=== PATIENT | female | born 1940 | race Caucasian/White ===

== ENCOUNTER 2017-01-04 06:47 | Day surgery (SDC) | payer MEDICARE ==
[2017-01-04] VITALS (16 sets, daily range): BP systolic 108–144; BP diastolic 50–71; PULSE 56–73; RESP 13–18; O2SAT 93–100
[~2017-01-04] VITALS: Ht 163.8 cm; Wt 63.6 kg
[~2017-01-04 06:47] MED LIST: ASPI-973 PO; ATOR20TA65 PO; BIMA2.5D5 BOTH_EYES; BRIM5DRO10 BOTH_EYES; CHOL200047 PO; CYAN1TAB42 PO; DORZ10DR20 BOTH_EYES; GABA-500 PO; LEVO25TA5 PO; LISI-571 PO; METO25TA6 PO; PRENATAL PO; PROP225C6 PO; RIVA20TA PO; VENL75CA PO
[2017-01-04] MEDS ORDERED: fentaNYL-PF 50 mCg/mL 2 mL Inj ONE (06:48)
[2017-01-04] MEDS ORDERED: Propofol 10,000 mCg/mL 20 mL Inj ONE (06:48)
[2017-01-04] MEDS ORDERED: Dexamethasone 4 mg/mL Inj ONE (06:48)
[2017-01-04] MEDS ORDERED: EPHEDrine/NS 5 mg/mL 5 mL Syringe ONE (06:48)
[2017-01-04] MEDS ORDERED: Rocuronium 10 mg/mL 5 mL Inj ONE (06:48)
[2017-01-04] MEDS ORDERED: Ondansetron 2 mg/mL 2 mL Inj ONE (06:48)
[2017-01-04] MEDS ORDERED: Protamine Sulfate 10 mg/mL 5 mL Inj ONE ×2 (06:48→14:51)
[2017-01-04] MEDS ORDERED: SODIUM CHLORIDE ONE (10:16)
[2017-01-04] MEDS ORDERED: Heparin 25,000 Unit/500 mL 0.45% NS Premix IV ONE (10:16)
[2017-01-04] MEDS ORDERED: Heparin 1,000 Units/500 mL NS Premix IV ONE ×2 (10:50→13:08)
[2017-01-04] MEDS ORDERED: CYCL1DRO BOTH_EYES (10:59)
--- NOTE | 2017-01-04 11:13 | PCM.HPANE ---
Patient Data Date of Service: Jan 04, 2017 ([id number]) Surgeon Admitting Provider: Attending Provider:Tay Husain MD Primary Care Physician:An Other Provider:Adina Baeza Anesthesia Reason for Visit A-FIB Ht/WT & BMI Body Mass Index Allergies Coded Allergies: Penicillins (Verified Allergy, Mild, rash, 01/04/17) Uncoded Allergies: No Known Allergies (Allergy, Unknown, 12/23/03) Past Anesthesia History Anesthesia History: Denies:: Abnormal Airway, Anesthesia Reactions, Difficult Intubation, Fam Anesthesia Reaction, Fam Malignant Hypertherm, Malignant Hyperthermia Diabetes History Hx Diabetes?: No MRSA MRSA: No Medications Blood Thinner: Aspirin (last dose 911 pm), Xarelto (last dose 01/02 pm) Hypertension Medication: Yes Home Meds Incl Beta Nicole: Yes Previous Beta Nicole Dose >24: Previous Dose <24 Hours Reported Medications Cyclosporine (Restasis)1 Each Droperette1 Each BOTH_EYES BID 01/04/17 Cholecalciferol (Vitamin D3) (Vitamin D3)2,000 Unit Capsule2,000 Unit PO DAILY 11/12/15 [] No Conflict Check27 Mg PO DAILY 11/11/15 Aspirin 81 Mg Nbyorf99 Mg PO DAILY Ref 0 11/11/15 Rivaroxaban (Xarelto)20 Mg Xvcuus83 Mg PO DAILY 06/23/14 Cyanocobalamin/Folic Acid (Vitamin Q54-Dtene Acid Tablet)1 Each Tablet1 Each PO DAILY 06/23/14 Propafenone ER 225 Mg Cap.er.24r942 Mg PO BID 06/23/14 Metoprolol Tartrate 25 Mg Hhwvov75 Mg PO BID 30 Days Ref 0 06/23/14 Bimatoprost (Lumigan)45 Drop/2.5 Ml Qcyfhpl65 Drop BOTH_EYES HS #1 BOTTLE 06/23/14 Lisinopril 5 Mg Tablet5 Mg PO DAILY #30 TABLET Ref 0 06/23/14 Levothyroxine 25 Mcg Ovygzt70 Mcg PO DAILY 30 Days Ref 0 06/23/14 Dorzolamide HCl/Timolol Maleat (Dorzolamide-Timolol Eye Drops)10 Ml Drops1 Gtt BOTH_EYES BID #1 BOTTLE 06/23/14 Atorvastatin Calcium 20 Mg Bdvkic77 Mg PO DAILY #30 TABLET Ref 0 06/23/14 Discontinued Reported Medications Gabapentin 100 Mg Rjctvck878 Mg PO DAILY 30 Days Ref 0 06/23/14 Venlafaxine ER (Effexor XR)75 Mg Cap.er.24h75 Mg PO DAILY #30 CAPSULE Ref 0 06/23/14 Brimonidine Tartrate (Alphagan P)5 Ml Drops1 Gtt BOTH_EYES BID 06/23/14 History History of ENT Problems?: Yes HEENT History: Positive for:: Cataracts (surgery to both eyes) Hearing Problem Denies:: Abnormal Airway Difficult Intubation Dysphagia Denture Type: None Teeth Condition: Within Normal Limits Hx of Heart Problems?: Yes Cardiovascular History: Positive for:: Atrial Fibrillation Cardiac Surgery (heart cath 2010 with mild left main dz) Heart Murmur (Mitral & Tricuspid Regurg; ) Hypertension Irregular Heartbeat (atrial fibrillation) Denies:: AICD Chest Pain Pacemaker Valvular Heart Disease Hx of Respiratory Problem?: No Respiratory History: Denies:: Asthma Hx Neurologic Problems?: No Neurological History: Denies:: CVA Dementia Seizures Hx of GI Problems?: Yes Hx of Problems?: No Hx Musculoskeletal Problems?: No Musculoskeletal History: Denies:: Back Injury Joint Replacement Hx of Psycho/Social Problems?: No Psycho Social History: Positive for:: Anxiety Hx Depression (daughter with metastatic breast cancer x 12 yrs for illness) Hx Surgeries?: Yes (Part. gastrectomy; part. liver resection; spleenectomy; nephrectomy) Hx Any Other Health Problems?: Yes Other History: Positive for:: Cancer (Lymphoma 1987) Hospitalization (Lymphoma) History Blood Transfusions: Positive for:: Blood Transfuse Reaction (Hep. A) Blood Transfusions Hx Diabetes: No Hx Alcohol Use: Yes (Rare)Hx Substance Use: No Smoking Status: Never Smoker Have You Smoked inLast 12 mo: No Stop/Bang S-Snoring: Do You Snore Loudly: No PHYLICIA Risk Assessment: Low Risk, <3 Yes Risk Assessment Category Category 1A: Patient has history of documented sleep apnea, and HAS NOT received any narcotic, sedative or anesthesia administration during this stay. Category 1B: Patient has history of documented sleep apnea, and HAS received any narcotic , sedative or anesthesia administration during this stay Category 2: Patient has SUSPECTED Obstructive Sleep Apnea, and HAS received any narcotic , sedative or anesthesia administration during this stay. Category 3: Patient has SUSPECTED Obstructive Sleep Apnea and HAS NOT received narcotic, sedative or anesthesia administration during this stay. Category 4: Outpatient in Procedural Areas with known sleep apnea or who screen positive for High Risk via the STOP/BANG questionnaire. Exam Exam General Appearance: Alert, Oriented X3 HEENT/AIRWAY: MP 1 Lungs: Clear to Auscultation Heart: Exam Unremarkable Plan Impression Patient chart reviewed, patient interviewed and anesthestic plan with risks, benefits, and alternatives discussed, and informed consent obtained. NPO per Anesth. Guidelines: Yes ASA Physical Status: ASA2 Mod Systemic Disease Anesthetic Plan: GA Bene/Risks/Altern/Consents: Yes HP Complete Prior to Induction: Yes Lyndon Chowdhury MD Jan 04, 2017 11:13
[2017-01-04 11:25] LABS: BASOPHILS % (AUTO) 1.7 % (0-3); EOSINOPHILS % (AUTO) 2.9 % (0-5); MONOCYTES % (AUTO) 12.7 % (4-12); Mean Corpuscular Hemoglobin 33.1 pg (27.0-35.0); Mean Corpuscular Volume 99.5 fL (81-100); NEUTROPHILS % (AUTO) 40.5 % (40-74); Platelet Count 228 bil/L (150-400)
--- NOTE | 2017-01-04 11:38 | NUR ---
Admit [facility] Admitted to [facility] 3 about 1010. VSS. Denies pain. States slight stomach upset from taking meds without food. IVs started and labs sent. Tele SR-SB. Procedure and recovery reviewed and verbalizes understanding. 16fr dover placed per order. Pt. tolerated well. Anesthesia and Dr. Husain in to consent pt. Awaiting lab support service tech.
[2017-01-04] MEDS ORDERED: Heparin 1,000 Unit/mL 10 mL Inj ONE (11:43)
[2017-01-04] MEDS ORDERED: Heparin 10,000 Unit/1,000 mL NS Premix IV ONE (11:43)
[2017-01-04] MEDS ORDERED: HYDROcodone-APAP 5-325 mg Tablet PO PRN (15:00)
[2017-01-04] MEDS ORDERED: Ondansetron 2 mg/mL 2 mL Inj IVPUSH PRN ×2 (15:00→15:30)
[2017-01-04] MEDS ORDERED: Lactated Ringer's 500 ML IV PRN (15:29)
[2017-01-04] MEDS ORDERED: Lactated Ringer's 1,000 ML IV SCH (15:29)
--- NOTE | 2017-01-04 15:29 | PCM.ANEP1 ---
Post Anesthesia PACU Phase 1 Assessment Vital Signs 36.6, 66, 96%, 20, 116/50 Vital Signs Date Time Temp Pulse Resp B/P Pulse Ox O2 Delivery O2 Flow Rate FiO2 01/04/17 10:48 36.8 61 14 144/67 96 Room Air 01/04/17 10:48 61 14 144/67 Anesthetic Administered: GA Level of Alertness: Awake, talking LEONG's with Equal Strength: Yes Pain: No Nausea or Vomiting: No CV Function & Hydration Stable: Yes Airway Device: none Lungs: Clear to Auscultation Dermatome Level: Full Sensation Summary uneventful GETA PACU Phase 2 Assessment Complications: No Follow up Care: No Patient Instructions Provided: N/A Lyndon Chowdhury MD Jan 04, 2017 15:29
--- NOTE | 2017-01-04 15:29 | DRSVH ---
[facility] [address] [place] [address] Echocardiogram Report Name: ZHANG ULRICH DStudy Date: Height: 64 in Hospital Exam Location: [facility] Weight: 148 lb Gender: Female BSA: 1.7 m2 : 1940 Age: 76 yrs BP: 120/53 mmHg Reason For Study: Atrial Fibrillation Ordering Physician: Dr. [place] Husain Performed By: Yasmin Jackson Referring Physician: KAMILA HUSAIN Interpretation Summary The left ventricular ejection fraction is grossly normal. No thrombus is detected in the left atrial appendage. There is moderate mitral regurgitation. There is trace aortic regurgitation. There is mild tricuspid regurgitation. Procedure: Sedation was managed by anesthesiologist; see anesthesiology notes for details. The transesophageal probe was passed without difficulty. A 2D transesophageal echocardiogram with spectral and color flow Doppler was performed. Comparison is made with the echocardiogram of 05/08/2014. The patient was in normal sinus rhythm during the exam. There were no complications. Left Ventricle: The left ventricular ejection fraction is grossly normal. Atria: No thrombus is detected in the left atrial appendage. Mitral Valve: The mitral valve leaflets appear mildly thickened, but open well. There is moderate mitral regurgitation. Aortic Valve: There is trace aortic regurgitation. Tricuspid Valve: There is mild tricuspid regurgitation. Doppler Measurements & Calculations MR PISA radius: 0.81 cm Electronically signed by: Sung Nguyen on Reading Physician:01/04/2017 03:28 PM
[2017-01-04] MEDS ORDERED: Phenylephrine 10,000 mCg/mL Inj IVPUSH PRN (15:30)
[2017-01-04] MEDS ORDERED: fentaNYL-PF 50 mCg/mL 2 mL Inj IVPUSH PRN (15:30)
[2017-01-04] MEDS ORDERED: EPHEDrine Sulfate 50 mg/mL Inj IVPUSH PRN (15:30)
[2017-01-04] MEDS ORDERED: Dexamethasone 4 mg/mL Inj IVPUSH PRN (15:30)
[2017-01-04] MEDS ORDERED: HYDROmorphone 1 mg/mL Inj IVPUSH PRN (15:30)
--- NOTE | 2017-01-04 16:34 | NUR ---
Procedure/Received To union laborer about 1200. Received about 1530. VSS. Denies pain. Bilateral groin without bleeding or hematoma. Tele SR with PACs. Taking ice chips well. Arterial line discontinued intact and pressure held for 20min as still bleeding at 10. Reyes draining QS. Family in to see pt. Dr. Husani in and assessed pt. Continue to monitor per orders.
--- NOTE | 2017-01-04 17:41 | PROCED ---
[address] [address] PROCEDURE NOTE PATIENT: ZHANG ULRICH : 1940 MR#: [id number] ADMIT: 01/04/2017 JOB ID: [id number] DATE OF SERVICE: 01/04/2017 PREOPERATIVE DIAGNOSIS(ES): Symptomatic drug refractory paroxysmal atrial fibrillation. POSTOPERATIVE DIAGNOSIS(ES): Symptomatic drug refractory paroxysmal atrial fibrillation. PROCEDURES PERFORMED: 1. Comprehensive electrophysiology study. 2. Three-dimensional electroanatomic mapping using the CARTO 3 system. 3. Intracardiac echocardiography. 4. Transseptal puncture x2. 5. Atrial fibrillation ablation with pulmonary vein isolation. 6. Barium esophagram. 7. Fluoroscopy. SURGEON: Windows Technical Specialist: Tay Husain MD, electrophysiology attending PORTABLE TRACK CREW CHIEF: Naren Borges PA-C. ANESTHESIA: General endotracheal anesthesia was undertaken for this case. INDICATION: The patient is a pleasant 76-year-old woman with preserved LV function with symptomatic drug refractory paroxysmal atrial fibrillation. After a discussion of the risks benefits of catheter based mapping and ablation, she opted to proceed. PROCEDURE DESCRIPTION: Following informed signed consent, the patient was taken to the EP laboratory in a fasting nonsedated state where she was prepped and draped in the usual sterile fashion. She underwent a preprocedural transesophageal echocardiogram by Dr. Nguyen confirming the lack of intracardiac thrombus. Please see separate dictated report for the details of that procedure. The bilateral groins were then infiltrated with 1% lidocaine; then, using modified Seldinger technique, two 8-Zimbabwean sheaths were inserted through the right femoral vein and a 7- and a 10.5-Zimbabwean sheath were inserted through the left femoral vein. Under fluoroscopic guidance a deflectable decapolar catheter was advanced to the coronary sinus with the most proximal bipoles at the os of the sinus. An intracardiac echocardiography probe was advanced to the RV outflow tract and used to visualize the pericardial space. No effusion was noted. The ICE probe was pulled back into the right atrium and used to visualize the interatrial septum and assist us with transseptal puncture. Two transseptal punctures were performed in an identical fashion. Each of the short 8-Zimbabwean sheaths was exchanged over a long wire for a Paice sheath dilator and [place] Brockenbrough needle. The entire system was used to engage the interatrial septum; then, under fluoroscopic, ICE, and pressure guidance, the septum was traversed twice to deploy the two Trejo sheaths into the left atrium. The patient was heparinized for a goal ACT of 350-400 seconds for the entire time we were in the left atrium, following the 1st and preceding the 2nd transseptal puncture. A re-survey of the pericardial space showed no evidence of effusion. Through the two Trejo sheaths an F-curve Smart Touch irrigated ablation catheter was passed, as was a 20 pole PentaRay catheter. A three-dimensional electroanatomic map of the left atrium and four pulmonary veins was created using the CARTO 3 system. Circumferential ablation lesions were placed, the 1st along the left common pulmonary vein, then the right upper and right lower pulmonary veins, achieving entrance and exit block in all three veins. We then disengaged from the left atrium. A re-survey of the pericardial space showed no evidence of effusion. We turned off the heparin and reversed with protamine. All catheters and sheaths were removed. During the course of this procedure we did complete a comprehensive electrophysiology study with right atrial pacing recording, right ventricular pacing recording, His bundle recording, and left atrial pacing recording via the coronary sinus catheter. All catheters and sheaths were removed. Manual pressure was held for hemostasis. The patient was transferred to the [facility] for monitoring and bedrest. COMPLICATIONS: None. ESTIMATED BLOOD LOSS: 15-20 mL FINDINGS: 1. Baseline rhythm was sinus, with an RR interval of 1096 msec, DC 279 msec, QRS 121 msec, QT 495 msec. 2. Intracardiac intervals: HV interval 63 msec, AH interval 142 msec. 3. Antegrade conduction: AV Wenckebach is seen at 460 msec. 4. Pulmonary vein isolation as described above with entrance and exit block in all pulmonary veins including the left main, right upper, and right lower pulmonary veins. Of note, prior to the onset of any ablation, a barium esophagram was performed to delineate the course of the esophagus closest to the posterior aspect of the left common pulmonary vein. Lower wattage, shorter duration camarena were placed in this region while monitoring the esophageal temperature. IMPRESSION: Successful pulmonary vein isolation procedure for drug refractory paroxysmal atrial fibrillation. PLAN: 1. Bed rest x4 hours. 2. Resume Xarelto in the recovery area. 3. Continue propafenone and beta blockade. 4. Protonix 40 mg p.o. daily x1 month. 5. Monitoring overnight. 6. Follow up with Naren Aragon PA-C in 4 weeks. 7. Follow up with me in three months. ATTENDING STATEMENT: Tay Husain MD, electrophysiology attending, was present for and supervised/performed all aspects of this procedure.
--- NOTE | 2017-01-04 18:51 | NUR ---
Transfer Assessment unchanged. See EMR. Dinner ordered to go to room. Report called to Clark Sandoval RN. Transported to 2022 via bed with and all belongings in no distress at 1750. Bedside check done.
--- NOTE | 2017-01-04 19:33 | NUR ---
Admit to [facility] Pt admitted to [facility] at 17:50 following successful ablation. Vitals stable. Pt on bedrest till 19:30. Groin sites non-tender and soft to palpation, CMS intact.
[2017-01-04] MEDS: Timolol 0.5% 5 mL Ophthalmic Solution BOTH_EYES SCH (20:17)
[2017-01-04] MEDS: Dorzolamide 2% 10 mL Ophthalmic Solution BOTH_EYES SCH (20:17)
--- NOTE | 2017-01-04 20:25 | NUR ---
Initial Noc Assessment: Initial assessment completed as charted. Pt in a NSR in with PACs. B groins soft to palpation with no oozing or bleeding noted. Peripheral pulses palpable. Pt admitted per [facility].
[2017-01-04] MEDS ORDERED: BIMATOPROST BOTH_EYES SCH (21:00)
[2017-01-04] MEDS: CYCLOSPORINE EYE BOTH_EYES SCH (21:08)
[2017-01-04] MEDS: PROPAFENONE 225 MG PO SCH (22:02)
[2017-01-05 03:57] VITALS: BP 117/60; PULSE 66; RESP 16; O2SAT 96
[2017-01-05 04:05] VITALS: PULSE 56
--- NOTE | 2017-01-05 05:06 | NUR ---
Cardiac/Urinary: Pt stable throughout the night in a NSR to SB in the 50s with PACs noted. B groin sites remained stable over the course of the night; peripheral pulses palpable. Reyes catheter removed without complication at 2119. Pt voided 250 mls post removal of catheter.
[2017-01-05 05:33] VITALS: PULSE 61
[2017-01-05] MEDS ORDERED: Pantoprazole 40 mg ER24 Tablet PO SCH (06:30)
[2017-01-05 08:00] VITALS: PULSE 56
[2017-01-05] MEDS: PROPAFENONE 225 MG PO SCH (08:07)
[2017-01-05] MEDS: Timolol 0.5% 5 mL Ophthalmic Solution BOTH_EYES SCH (08:07)
[2017-01-05] MEDS: Dorzolamide 2% 10 mL Ophthalmic Solution BOTH_EYES SCH (08:07)
[2017-01-05] MEDS: CYCLOSPORINE EYE BOTH_EYES SCH (08:09)
[2017-01-05] MEDS ORDERED: Multivit-Miner-Folic Acid-Iron Tablet PO SCH (08:30)
[2017-01-05 08:56] VITALS: BP 131/74; PULSE 86; RESP 16; O2SAT 97
--- NOTE | 2017-01-05 09:03 | PCM.DIMED ---
Discharge Instructions Date of Service Jan 05, 2017 Dates of Hospitalization Discharge Diagnosis Discharge Diagnosis Coronary Artery Disease Cardiomyopathy Hypertension Atrial Fibrillation Diet Discharge Diet: Low fat, Low Sodium, Heart Healthy Activity Discharge Activity: Other (To prevent bleeding, do not lift or push more than 10 lbs for 1 week. To prevent infection, do not sit in a hot tub, bath tub or pool for one week.) Call your provider Call your provider for: Fever or Chills, Bleeding, Excessive diarrhea, Weakness (unilateral) Patient Instructions Provider: Tay Husain MD Follow-up in: Other (3 month: 2016 at 3:00 pm) Mid-level Provider (F9): Naren Aragon PA-C Follow-up with Mid-level in: 4 weeks (Appt. on 2016 at 10:45) Naren Aragon PA-C Jan 05, 2017 09:03
[2017-01-05] MEDS ORDERED: PANT40TA3 PO (09:11)
--- NOTE | 2017-01-05 10:05 | DIS ---
[address] [address] DISCHARGE SUMMARY PATIENT: ZHANG ULRICH : 1940 MR#: [id number] ADMIT: 01/04/2017 JOB ID: [id number] DIS: 01/05/2017 REASON FOR ADMISSION: For ablation procedure for atrial fibrillation. CHIEF COMPLAINT: Palpitations and fatigue when in atrial fibrillation. BRIEF HISTORY: The patient is a pleasant 76-year-old woman first diagnosed with atrial fibrillation in 2010 when she had a rapid ventricular response. She developed a tachycardia mediated cardiomyopathy and was placed on heart failure medications, anticoagulation and ultimately underwent cardioversion. She has been maintained on propafenone and beta-kiah and anticoagulation but continues to have breakthrough arrhythmias. With her continued paroxysmal atrial fib and history of tachycardia induced cardiomyopathy, she was offered an ablation procedure for more definitive therapy of atrial fibrillation and wished to proceed with that. COURSE IN HOSPITAL: The patient was admitted through the [facility], taken to the incinerator plant laborer, where she was first placed under general anesthesia by anesthesiologist. She then had a AUSTIN performed which showed no atrial thrombus. Then the atrial fibrillation ablation procedure was undertaken and accomplished without incident. Afterward the sheaths were removed, hemostasis was obtained and she was awakened from anesthesia. She was then transferred back to the [facility] for recovery from the procedure and then transferred up to the second floor [facility] for overnight observation and telemetry monitoring. In the morning, she was in sinus rhythm and ambulatory without difficulty. She had had no bleeding from the groin access sites and did not have pain or hematomas. The Reyes catheter had been removed and she was able to void without difficulty. She denied chest discomfort, shortness of breath, or lightheadedness and was feeling well enough for discharge home. DISPOSITION: The patient was discharged home in good condition with a follow up appointment at the [facility] Cardiology office in one month. She was asked not to sit in a hot tub, bathtub or pool to prevent infection and to prevent bleeding. She was asked to not lift, push or pull more than 10 pounds for one week. DISCHARGE MEDICATIONS: 1. Pantoprazole 40 mg daily for one week. 2. Aspirin 81 mg daily. 3. Atorvastatin 20 mg daily. 4. Lumigan eyedrops both eyes each evening. 5. Vitamin D3, 2000 units daily. 6. Vitamin B12/folic acid tablet 1 daily. 7. Restasis 1 drop both eyes b.i.d. 8. Dorzolamide timolol eyedrops 1 drop both eyes b.i.d. 9. Levothyroxine 25 mcg daily. 10. Lisinopril 5 mg daily. 11. Metoprolol tartrate 25 mg b.i.d. 12. Propafenone ER 25 mg b.i.d. 13. Rivaroxaban 20 mg daily. 14. vitamin 27 mg daily. FINAL DIAGNOSES: 1. Coronary artery disease. 2. Hypertension. 3. History of tachycardia induced cardiomyopathy. 4. Hypertension. 5. Atrial fibrillation.
--- NOTE | 2017-01-05 10:19 | NUR ---
Discharge Pt left with at 1015 this morning. A&Ox3, vitals stable, bilateral groin sites soft and non tender. All discharge instructions gone over and understood. IV and tele removed. New prescription sent to pharmacy for pickup. All follow up apts made and pt aware of dates. All questions answered and pt understands follow up care. Pt left via wheelchair to private car.
== END 2017-01-05 10:55 | disposition home or self-care (01) ==
LOC: SAS 06:47 → PCC 18:05 → SPI 01-05 10:55
PROVIDERS: ATTEND Internal Medicine Cardiovascular Disease
DX: I48.0 Paroxysmal atrial fibrillation (principal); I42.8 Other cardiomyopathies; I25.10 Atherosclerotic heart disease of native coronary artery without angina pectoris; I10 Essential (primary) hypertension; Z79.82 Long term (current) use of aspirin; Z79.899 Other long term (current) drug therapy; Z79.01 Long term (current) use of anticoagulants; I07.1 Rheumatic tricuspid insufficiency; I08.1 Rheumatic disorders of both mitral and tricuspid valves
CPT/HCPCS: 36415; 80048; 85025; 85610; 93005; 93613; 93656; 93662; C1730; C1732; C1759; C1769; C1894; C8925; J1100; J1644; J2250; J2405; J2704; J2720; J3010; J7030; J7120